=== PATIENT | female | born 1955 | race Caucasian/White ===

== ENCOUNTER 2018-02-06 09:50 | Outpatient (CLI) | payer BC | END 2018-02-06 09:51 | disposition home or self-care (01) | LOC: BICMAMMO 09:50 | PROVIDERS: ATTEND Nurse Practitioner | DX: Z12.31 Encounter for screening mammogram for malignant neoplasm of breast (principal) | CPT/HCPCS: 77063; 77067 ==

== ENCOUNTER 2019-01-25 19:52 | Inpatient (IN) | payer BC ==
[2019-01-25] MEDS ORDERED: Azithromycin 500 MG VIAL ONE (20:57)
[2019-01-25] MEDS ORDERED: Zolpidem Tartrate 5 MG TAB PO PRN (21:36)
[2019-01-25] MEDS ORDERED: Ondansetron PF 4 MG/2 ML Vial IVP PRN (21:36)
--- NOTE | 2019-01-25 21:50 | PDOC.EVN ---
Event Note - Event Note Event Note: H&P [id number]
--- NOTE | 2019-01-25 22:31 | HP ---
CHIEF COMPLAINT: Cough and shortness of breath. HISTORY OF PRESENT ILLNESS: This is a 63-year-old female who states that she has been having cough and shortness of breath for approximately a week now. The patient was started on Z-Edson states that she has had no real benefit. Has not actually worsened however, but her cough, shortness of breat, and fevers have still been present throughout. The patient apparently was seen at an outside ER where she had a test done for influenza A and B and strep, which were negative. The patient was transferred to [facility] for further management and care. The patient was seen and examined in the ER. States that apart from cough and shortness of breath, she has no other complaints. No other medical history. No other alleviating or aggravating factors. The patient states that her past medical history is only positive for hyperlipidemia. Otherwise, she has no other prior medical history. Surgeries pertinent are not present. The patient is seen and examined in the ER. at bedside. All questions answered. REVIEW OF SYSTEMS: All systems reviewed, pertinent positives in HPI, otherwise negative. ALLERGIES: NO KNOWN DRUG ALLERGIES. SOCIAL HISTORY: Nondrinker, nonsmoker. FAMILY HISTORY: None. HOME MEDICATIONS: See MAR. PAST SURGICAL HISTORY: Hysterectomy as well as . PHYSICAL EXAMINATION: VITAL SIGNS: Blood pressure is 118/88, heart rate of 100, pulse of 98, temperature of 99, O2 saturations 100% on room air, respiratory rate of 18. GENERAL: The patient lying in bed. No acute discomfort. Occasionally coughing. HEENT: Pupils are equal, round, and reactive to light and accommodation. Oral cavity moist and pink. Extraocular muscles intact. NECK: Supple, mobile, nontender. Thyroid appreciated. PULMONARY: Bilateral lower lobe inspiratory crackles noted, mild. No increase in respiratory rate. No increase in AP diameter. CARDIOVASCULAR: Regular rate and rhythm. S1, S2. No murmurs, rubs, or gallops appreciated. ABDOMEN: Positive bowel sounds. Soft, nontender, nondistended. EXTREMITIES: 2+ peripheral pulses noted. No cyanosis, clubbing, or edema. NEUROLOGICAL: Cranial nerves 2 through 12 intact. No loss of motor or sensory function. LABORATORY DATA: CBC reviewed. BMP reviewed. X-ray from outside facility reviewed. ASSESSMENT: 1. Bronchitis. 2. Hyperlipidemia. PLAN: 1. At this point in time, we will admit the patient to Internal Medicine Team in the outpatient unit. 2. We will start the patient on IV Levaquin as she has been tried on Z-Edson and this has not worked. 3. We will provide p.r.n. DuoNebs. 4. We will obtain repeat chest x-ray tomorrow morning as well as blood cultures. Depending on the patient's condition, if she is improving, she could probably be discharged home with Levaquin and Medrol Dosepak and inhaler. Plan discussed with the patient and at length. We will adjust plan and therapy and medical care based on the patient's condition and how she progresses and the results of the workup. Once again case and plan discussed with the patient and at length. They understand, agree with this plan. They wish for the patient to remain full code. Job ID: [id number]
[2019-01-26 00:15] VITALS: BMI 25.2
[2019-01-26 05:37] LABS: #Lymphocytes 0.5 thou/uL (1.20-3.40); #Monocytes 0.4 thou/uL (0.11-0.59); #Neutrophils 12.5 thou/uL (1.40-6.50); %Lymphocytes 3.7 % (21.0-51.0); %Monocytes 2.6 % (0.0-10.0); %Neutrophils 93.6 % (42.0-75.0); Hemoglobin 13.4 g/dL (12.0-16.0); Mean Corpuscular HGB CONC 34.3 g/dL (32.0-36.0); Mean Corpuscular Hemoglobin 33.4 pg (27.0-31.0); Mean Corpuscular Volume 97.4 fL (78.0-98.0); Mean Platelet Volume 7.3 fL (7.4-10.4); Platelet Count 225 thou/uL (130-400); RBC Distribution Width 11.7 % (11.5-14.5); Red Blood Cell (RBC) Count 3.99 mill/uL (4.20-5.40); White Blood Cell (WBC) Count 13.3 thou/uL (4.8-10.8)
[2019-01-26 05:59] LABS: Anion Gap 13 mmol/L (10-20); BUN (Urea Nitrogen) 10 mg/dL (9.8-20.1); Calc. Creatinine Clearance 82 mL/min (70-130); Carbon Dioxide 24 mmol/L (23-31); Chloride 102 mmol/L (98-107); Estimated GFR-MDRD 86; Glucose 143 mg/dL (80-115); Potassium 4.3 mmol/L (3.5-5.1); Sodium 135 mmol/L (136-145)
[2019-01-26] MEDS: Folic Acid 1 MG TAB PO SCH (08:51)
[2019-01-26] MEDS ORDERED: Enoxaparin Sodium 40 MG/0.4 ML SYRINGE SC SCH (09:00)
--- NOTE | 2019-01-26 15:45 | PDOC.PN ---
- Subjective Encounter Start Date: 01/26/19 Encounter Start Time: 09:00 Patient seen and examined for Pneumonia. Productive cough+. No new complaints. No overnight events - Objective Resuscitation Status - Order Detail: 01/25/19 21:36 Resuscitation Status Routine Resuscitation Status: FULL: Full Resuscitation Discussed with: patient and MAR Reviewed: Yes Vital Signs & Weight: Vital Signs (12 hours) Temp Pulse Resp BP Pulse Ox 01/26/19 12:00 97.8 F 91 20 142/73 H 96 01/26/19 07:35 97.4 F L 88 24 H 121/77 98 01/26/19 03:52 97.7 F 83 20 108/60 97 Weight Weight 137 lb 14.4 oz I&O: 01/25/19 01/26/19 01/27/19 06:59 06:59 06:59 Intake Total 600 Output Total 800 Balance -200 Result Diagrams: 01/28/19 07:09 01/28/19 07:09 Radiology Reviewed by me: No (CXR - RLL infiltrate) Phys Exam - Physical Examination Constitutional: NAD Respiratory: no wheezing, no rhonchi Right sided rales Cardiovascular: RRR, no rub Gastrointestinal: soft, non-tender, positive bowel sounds Musculoskeletal: no edema Neurological: moves all 4 limbs Dx/Plan - Plan DVT proph w/SCDs 1. Sepsis due to RLL pneumonia ?Pneumococcal 2. HLD 3. Hyponatremia 4. CKD 2 PLAN: Cont IV Levaquin WBC down to 13.3 from 18. Had fever 102 at other facility Flu negative Strep negative Add Mucinex CBC in AM Cont to monitor DC in 24 hr if stable Review of Systems - Review of Systems Cardiovascular: negative: chest pain, palpitations, orthopnea, paroxysmal nocturnal dyspnea, edema, light headedness, other Gastrointestinal: negative: Nausea, Vomiting, Abdominal Pain, Diarrhea, Constipation, Melena, Hematochezia, Other - Medications/Allergies Allergies/Adverse Reactions: Allergies Allergy/AdvReac Type Severity Reaction Status Date / Time No Known Allergies Allergy Verified 01/25/19 22:56 Medications: Current Medications Acetaminophen (Tylenol) 650 mg PO Q4H PRN PRN Reason: Headache/Fever/Mild Pain (1-3) Albuterol/Ipratropium (Duoneb) 3 ml NEB [id number] PRN PRN Reason: SOB &/or Wheezing Aspirin (Ecotrin) 81 mg PO HS [facility] Atorvastatin Calcium (Lipitor) 20 mg PO HS [facility] Cholecalciferol (Vitamin D3) 1,000 units PO HS [facility] Cyanocobalamin (Vitamin B-12) 500 mcg PO HS [facility] Folic Acid (Folvite) 0.5 mg PO DAILY [facility] Last Admin: 01/26/19 08:51 Dose: 0.5 mg Levofloxacin 500 mg/ Device 100 mls @ 100 mls/hr IVPB Q24HR [facility] Last Admin: 01/25/19 23:28 Dose: 100 mls Ondansetron HCl (Zofran) 4 mg IVP Q6H PRN PRN Reason: Nausea/Vomiting Sodium Chloride (Flush - Normal Saline) 10 ml IVF Q12HR PRN PRN Reason: Saline Flush Last Admin: 01/25/19 23:26 Dose: 10 ml Zolpidem Tartrate (Ambien) 5 mg PO HSPRN PRN PRN Reason: Insomnia
[2019-01-26] MEDS ORDERED: Non-Formulary Item 1 EACH (Cyanocobalamin (Vitamin B-12) [Vitamin B-12] 500 MCG) PO SCH (21:00)
[2019-01-26] MEDS ORDERED: Non-Formulary Item 1 EACH (Folic Acid [Folic Acid] 0.4 MG) PO SCH (21:00)
[2019-01-26] MEDS ORDERED: CHOLECALCIFEROL 800 UNIT PO SCH (21:00)
[2019-01-26] MEDS: Cyanocobalamin (Vitamin B-12) 1,000 MCG TAB PO SCH (21:03)
[2019-01-26] MEDS: Aspirin 81 mg Enteric Coated Tablet PO SCH (21:04)
[2019-01-26] MEDS: guaiFENesin ER 600 MG TAB PO SCH (21:04)
[2019-01-26] MEDS: Atorvastatin Calcium 20 MG TAB PO SCH (21:04)
[2019-01-27 06:06] LABS: Hemoglobin 12.9 g/dL (12.0-16.0); Mean Corpuscular HGB CONC 32.2 g/dL (32.0-36.0); Mean Corpuscular Hemoglobin 31.9 pg (27.0-31.0); Mean Corpuscular Volume 99.2 fL (78.0-98.0); Platelet Count 282 thou/uL (130-400); RBC Distribution Width 11.9 % (11.5-14.5); Red Blood Cell (RBC) Count 4.03 mill/uL (4.20-5.40); White Blood Cell (WBC) Count 18.3 thou/uL (4.8-10.8)
[2019-01-27 06:07] LABS: Band 27 % (5-11); Lymphocytes 10 % (21-51); MDiff Complete? YES; Monocytes 6 % (0-10); Neutrophil 57 % (42-75); Platelet Morphology Comment Appears Adequate
[2019-01-27] MEDS: Saccharomyces boulardii 250 MG CAP PO SCH (09:44)
[2019-01-27] MEDS: guaiFENesin ER 600 MG TAB PO SCH ×2 (09:44→20:43)
[2019-01-27] MEDS: Folic Acid 1 MG TAB PO SCH (09:44)
[2019-01-27] MEDS: Acetaminophen 325 MG TAB PO PRN (09:45)
[2019-01-27] MEDS: cefTRIAXone\\ROCEPHIN 2 GM in Sodium Chloride 0.9% 100 ML IVPB SCH (10:51)
--- NOTE | 2019-01-27 12:08 | RAD ---
CHEST 2 VIEWS: Date: 01/27/19 HISTORY: Pneumonia, worsening white blood cell count. FINDINGS: Alveolar confluent pneumonia in the right lower lobe. Heart size is normal. The left lung is clear. N o significant pleural effusion. IMPRESSION: Evidence for right lower lobe pneumonia. Atherosclerosis of aorta. POS: [facility]
[2019-01-27] MEDS ORDERED: diphenhydrAMINE 25 MG CAP PO PRN (13:55)
[2019-01-27] MEDS ORDERED: Loratadine 10 MG TAB PO PRN (13:55)
[2019-01-27] MEDS ORDERED: Senokot 8.6 MG TAB PO PRN (13:58)
[2019-01-27] MEDS ORDERED: Polyethylene Glycol 3350 17 GM Packet PO PRN (13:58)
--- NOTE | 2019-01-27 17:23 | PDOC.PN ---
- Subjective Encounter Start Date: 01/27/19 Encounter Start Time: 12:30 Patient seen and examined for Pneumonia. Feels the same. Cough productive of white phlegm. No new complaints. No overnight events - Objective Resuscitation Status - Order Detail: 01/25/19 21:36 Resuscitation Status Routine Resuscitation Status: FULL: Full Resuscitation Discussed with: patient and MAR Reviewed: Yes Vital Signs & Weight: Vital Signs (12 hours) Temp Pulse Resp BP Pulse Ox 01/27/19 15:52 98.2 F 83 16 143/79 H 96 01/27/19 11:21 98.2 F 80 16 145/77 H 98 01/27/19 07:44 97.9 F 82 16 140/80 98 Weight Admit Weight 137 lb 14.4 oz Weight 137 lb 14.4 oz I&O: 01/26/19 01/27/19 01/28/19 06:59 06:59 06:59 Intake Total 600 1840 480 Output Total 800 2300 Balance -200 -460 480 Result Diagrams: 01/28/19 07:09 01/28/19 07:09 Radiology Reviewed by me: Yes (CXR - Rt basilar pneumonia) Phys Exam - Physical Examination Constitutional: NAD Respiratory: no wheezing, no rhonchi Cardiovascular: RRR, no rub Rt basilar rales Gastrointestinal: soft, non-tender, positive bowel sounds Musculoskeletal: no edema Neurological: moves all 4 limbs Dx/Plan - Plan DVT proph w/SCDs 1. Sepsis due to RLL pneumonia ?Pneumococcal 2. HLD 3. Hyponatremia 4. CKD 2 PLAN: Add IV Ceftriaxone Cont IV Levaquin Change to inpt AM labs Consult ID due to worsening WBC with 27% bandemia Review of Systems - Review of Systems Respiratory: negative: Cough, Dry, Shortness of Breath, Hemoptysis, SOB with Excertion, Pleuritic Pain, Sputum, Wheezing Cardiovascular: negative: chest pain, palpitations, orthopnea, paroxysmal nocturnal dyspnea, edema, light headedness, other Gastrointestinal: negative: Nausea, Vomiting, Abdominal Pain, Diarrhea, Constipation, Melena, Hematochezia, Other - Medications/Allergies Allergies/Adverse Reactions: Allergies Allergy/AdvReac Type Severity Reaction Status Date / Time No Known Allergies Allergy Verified 01/25/19 22:56 Medications: Current Medications Acetaminophen (Tylenol) 650 mg PO Q4H PRN PRN Reason: Headache/Fever/Mild Pain (1-3) Last Admin: 01/27/19 09:45 Dose: 650 mg Albuterol/Ipratropium (Duoneb) 3 ml NEB [id number] PRN PRN Reason: SOB &/or Wheezing Aspirin (Ecotrin) 81 mg PO [facility] Last Admin: 01/26/19 21:04 Dose: 81 mg Atorvastatin Calcium (Lipitor) 20 mg PO [facility] Last Admin: 01/26/19 21:04 Dose: 20 mg Cholecalciferol (Vitamin D3) 1,000 units PO [facility] Last Admin: 01/26/19 21:03 Dose: 1,000 units Cyanocobalamin (Vitamin B-12) 500 mcg PO [facility] Last Admin: 01/26/19 21:03 Dose: 500 mcg Diphenhydramine HCl (Benadryl) 25 mg PO Q6H PRN PRN Reason: Itching & Insomnia Doxycycline Hyclate (Vibramycin) 100 mg PO BID [facility] Folic Acid (Folvite) 0.5 mg PO DAILY [facility] Last Admin: 01/27/19 09:44 Dose: 0.5 mg Guaifenesin (Mucinex) 600 mg PO Q12HR [facility] Last Admin: 01/27/19 09:44 Dose: 600 mg Ceftriaxone Sodium 2 gm/ (Sodium Chloride) 100 mls @ 200 mls/hr IVPB Q24HR [facility] Last Admin: 01/27/19 10:51 Dose: 100 mls Loratadine (Claritin) 10 mg PO DAILYPRN PRN PRN Reason: Sinus Symptoms Ondansetron HCl (Zofran) 4 mg IVP Q6H PRN PRN Reason: Nausea/Vomiting Polyethylene Glycol (Miralax) 17 gm PO DAILY PRN PRN Reason: Constipation Saccharomyces Boulardii (Florastor) 250 mg PO DAILY [facility] Last Admin: 01/27/19 09:44 Dose: 250 mg Senna (Senokot) 2 tab PO HSPRN PRN PRN Reason: Constipation Sodium Chloride (Flush - Normal Saline) 10 ml IVF Q12HR PRN PRN Reason: Saline Flush Last Admin: 01/26/19 21:06 Dose: 10 ml Zolpidem Tartrate (Ambien) 5 mg PO HSPRN PRN PRN Reason: Insomnia
--- NOTE | 2019-01-27 18:02 | CON ---
DATE OF CONSULTATION: 01/27/2019 REASON FOR CONSULTATION: Respiratory symptoms and fever. HISTORY OF PRESENT ILLNESS: A 63-year-old, who has history of fairly good health status in the past with very little problems, who presented with 2 weeks history of respiratory symptoms with cough and low-grade temperature elevation, which have not responded to outpatient azithromycin. She had an A and B influenza antigen test, which were negative and eventually transferred to [facility] with concern for community-acquired pneumonia. Since admission, she has felt improved and now she feels like she is close to baseline. No headaches, visual symptoms, sore throat, odynophagia, or dysphagia. No vomiting. No back pain. No abdominal pain or diarrhea. No genitourinary symptoms. PAST MEDICAL HISTORY: Hysterectomy and and previous cholecystectomy for management of acute cholecystitis. SOCIAL HISTORY: Never smoker. FAMILY HISTORY: Negative. CURRENT MEDICATIONS: 1. Tylenol. 2. DuoNeb. 3. Ecotrin. 4. Lipitor. 5. Ceftriaxone. 6. Vitamin B. 7. Benadryl. 8. Vibramycin. 9. MiraLAX. 10. Zolpidem. OBJECTIVE: VITAL SIGNS: Vital signs normal. BP 140/79, pulse 83, respirations 16, and O2 saturation 96%. SKIN: Shows no areas of skin breakdown. No petechia or purpura. No lymphadenopathy. HEENT: Ocular movements conjugate. Oral cavity normal. NECK: Supple. LUNGS: Symmetric clear breath sounds. HEART: S1 and S2. Regular rate. ABDOMEN: Soft, not distended or tender. No ascites. No bladder distention. EXTREMITIES: No edema. Pulses, 1+ in dorsalis pedis. Moves extremities equally. Cognitive function appears to be intact. LABORATORY DATA: White cell count is up from 13,000 to 18,000, hemoglobin 12, and platelets 282 with 27% bands. Sodium 135, creatinine 0.69, and glucose 143. Two sets of blood cultures thus far no growth. IMAGING STUDY: With a chest x-ray, which demonstrates confluent infiltrate right lower lobe, normal heart size. ASSESSMENT: 1. Respiratory symptoms for 2 weeks with intermittent low-grade temp elevation. 2. Failure of response to azithromycin given in the outpatient setting. 3. Abnormal chest x-ray. 4. Neutrophilia with bandemia. DISCUSSION: The differential diagnosis includes community-acquired pneumonia with the usual pathogens including the possibility of viral pneumonia. An atypical pneumonia due to mycobacterial pathogens and zoonotic infections such as Coxiella burnetii appears to be less likely. Vasculitis malignancy less likely. The patient does not have risk factors for resistant pathogens and I would continue with Rocephin, switch her to doxycycline from levofloxacin in view of the possible reaction with facial erythema. We will submit respiratory virus PCR panel and respiratory pathogen PCR panel. Job ID: [id number]
[2019-01-27] MEDS: Aspirin 81 mg Enteric Coated Tablet PO SCH (20:42)
[2019-01-27] MEDS: Atorvastatin Calcium 20 MG TAB PO SCH (20:42)
[2019-01-27] MEDS: Doxycycline 100 MG CAP PO SCH (20:43)
[2019-01-27] MEDS: Cyanocobalamin (Vitamin B-12) 1,000 MCG TAB PO SCH (20:44)
[2019-01-28 07:56] LABS: Hemoglobin 13.4 g/dL (12.0-16.0); Mean Corpuscular HGB CONC 32.8 g/dL (32.0-36.0); Mean Corpuscular Hemoglobin 32.4 pg (27.0-31.0); Mean Corpuscular Volume 98.7 fL (78.0-98.0); Mean Platelet Volume 6.8 fL (7.4-10.4); Platelet Count 318 thou/uL (130-400); RBC Distribution Width 11.7 % (11.5-14.5); Red Blood Cell (RBC) Count 4.14 mill/uL (4.20-5.40); White Blood Cell (WBC) Count 9.1 thou/uL (4.8-10.8)
[2019-01-28 07:59] LABS: Anion Gap 15 mmol/L (10-20); BUN (Urea Nitrogen) 12 mg/dL (9.8-20.1); Calc. Creatinine Clearance 78 mL/min (70-130); Calcium 9.5 mg/dL (7.8-10.44); Carbon Dioxide 26 mmol/L (23-31); Chloride 103 mmol/L (98-107); Estimated GFR-MDRD 81; Glucose 99 mg/dL (80-115); Potassium 4.5 mmol/L (3.5-5.1); Sodium 139 mmol/L (136-145)
[2019-01-28 08:27] VITALS: BP 135/80; TEMP 98.3
[2019-01-28 08:33] LABS: Band 6 % (5-11); Lymphocytes 18 % (21-51); MDiff Complete? YES; Monocytes 12 % (0-10); Neutrophil 63 % (42-75); RBC Morphology Normal; Reactive Lymphocytes 1 % (0-10)
[2019-01-28] MEDS: guaiFENesin ER 600 MG TAB PO SCH (08:40)
[2019-01-28] MEDS: Folic Acid 1 MG TAB PO SCH (08:40)
[2019-01-28] MEDS: Saccharomyces boulardii 250 MG CAP PO SCH (08:40)
[2019-01-28] MEDS: Doxycycline 100 MG CAP PO SCH (11:37)
[2019-01-28] MEDS: Acetaminophen 325 MG TAB PO PRN (11:37)
[2019-01-28] MEDS: cefTRIAXone\\ROCEPHIN 2 GM in Sodium Chloride 0.9% 100 ML IVPB SCH (11:37)
--- NOTE | 2019-01-29 09:35 | DIS ---
DATE OF ADMISSION: 01/25/2019 DATE OF DISCHARGE: 01/28/2019 DISCHARGE DISPOSITION: Home. FOLLOW-UP: Follow up with Cira Douglas, family nurse practitioner in 1 week. The patient was seen and examined on the day of discharge. Denies any new complaints. Overall, symptomatically feels much better. DISCHARGE MEDICATIONS: 1. Omnicef 300 mg twice a day for 1 week. 2. Doxycycline 100 mg b.i.d. for 1 week. 3. Florastor 250 mg daily. 4. Mucinex twice a day for 1 week. All other home medications were left unchanged. BRIEF HOSPITAL COURSE: The patient is a 63-year-old female, who presented to the emergency room with cough and shortness of breath of 2 weeks' duration. Workup was consistent with right lower lobe pneumonia. WBC count on admission was 18,000, that improved to 13,000 on the . Repeat WBC on 27 January was 18.3 with 27% bandemia. The patient was evaluated by Dr. Cross on this day. Repeat chest x-ray on showed right lower lobe pneumonia. Dr. Cross recommended ceftriaxone with doxycycline. WBC on the day of discharge was 9.1 without any bandemia. Symptomatically, she feels much better. Respiratory viral panel was positive for parainfluenza 3 and rhinovirus. Blood culture remained negative. Primary care physician advised to follow up on the final blood cultures. FINAL DIAGNOSES: 1. Sepsis secondary to right lower lobe pneumonia, suspected pneumococcal. 2. Acute rhinovirus and parainfluenza virus 3 infection. 3. Hyperlipidemia. 4. Chronic kidney disease stage 2. 5. Mild hyponatremia secondary to dehydration on admission. PLAN: Plan of care was discussed with the patient in detail. She stated understanding. Job ID: [id number]
== END 2019-01-28 16:20 | disposition home or self-care (01) | DRG 871 ==
LOC: ERS 19:52 → OBSVTOIN 22:44 → 2SW 22:44 → T4-B 01-27 22:39
PROVIDERS: ADMIT Internal Medicine; ATTEND Internal Medicine
DX: A41.9 Sepsis, unspecified organism (principal); J13 Pneumonia due to Streptococcus pneumoniae; J10.08 Influenza due to other identified influenza virus with other specified pneumonia; E87.1 Hypo-osmolality and hyponatremia; E78.00 Pure hypercholesterolemia, unspecified; E86.0 Dehydration; N18.2 Chronic kidney disease, stage 2 (mild); Z90.710 Acquired absence of both cervix and uterus; Z90.49 Acquired absence of other specified parts of digestive tract
CPT/HCPCS: 36415; 71046; 80048; 85007; 85025; 85027; 87040; 87633; 87798; 96365; J0456; J0696; J1956; J7050

== ENCOUNTER 2019-05-30 14:10 | Outpatient (CLI) | payer BC ==
--- NOTE | 2019-05-30 14:48 | MMO ---
Bilateral MAMMO Bilat Screen [facility]. CLINICAL HISTORY: Patient is 63 years old and is seen for screening. The patient has no family history of breast cancer. The patient has no personal history of cancer. VIEWS: The views performed were: bilateral craniocaudal with tomosynthesis and bilateral mediolateral oblique with tomosynthesis. FILMS COMPARED: The present examination has been compared to prior imaging studies performed at [facility] on 12/12/2011, 04/28/2013 and 08/09/2015, and at [facility] on 02/06/2018. MAMMOGRAM FINDINGS: There are scattered fibroglandular densities. There are benign appearing calcifications seen in both breasts. There are no suspicious masses, suspicious calcifications, or new areas of architectural distortion. IMPRESSION: THERE IS NO MAMMOGRAPHIC EVIDENCE OF MALIGNANCY. A ROUTINE FOLLOW-UP MAMMOGRAM IN 1 YEAR IS RECOMMENDED. THE RESULTS OF THIS EXAM WERE SENT TO THE PATIENT. ACR BI-RADS Category 2 - Benign finding MAMMOGRAPHY NOTE: 1. A negative mammogram report should not delay a biopsy if a dominant of clinically suspicious mass is present. 2. Approximately 10% to 15% of breast cancers are not detected by mammography. 3. Adenosis and dense breasts may obscure an underlying neoplasm. Reported by: RAZA ASIF MD Electonically Signed: [id number]
== END 2019-05-30 14:11 | disposition home or self-care (01) ==
LOC: BICMAMMO 14:10
PROVIDERS: ATTEND Nurse Practitioner
DX: Z12.31 Encounter for screening mammogram for malignant neoplasm of breast (principal)
CPT/HCPCS: 77063; 77067

== ENCOUNTER 2020-09-02 08:06 | Outpatient (CLI) | payer MEDICARE, OTHER ==
--- NOTE | 2020-09-02 08:35 | MMO ---
Bilateral MAMMO Bilat Screen [facility]. CLINICAL HISTORY: Patient is 65 years old and is seen for screening. The patient has no family history of breast cancer. The patient has no personal history of cancer. VIEWS: The views performed were: bilateral craniocaudal with tomosynthesis and bilateral mediolateral oblique with tomosynthesis. FILMS COMPARED: The present examination has been compared to prior imaging studies performed at [facility] on 04/28/2013 and 08/09/2015, and at [facility] on 02/06/2018 and 05/30/2019. This study has been interpreted with the assistance of computer-aided detection. MAMMOGRAM FINDINGS: The breasts are heterogeneously dense, which could obscure a lesion on mammography. There are stable benign appearing calcifications seen in both breasts. There are no suspicious masses, suspicious calcifications, or new areas of architectural distortion. IMPRESSION: THERE IS NO MAMMOGRAPHIC EVIDENCE OF MALIGNANCY. A ROUTINE FOLLOW-UP MAMMOGRAM IN 1 YEAR IS RECOMMENDED. THE RESULTS OF THIS EXAM WERE SENT TO THE PATIENT. ACR BI-RADS Category 2 - Benign finding MAMMOGRAPHY NOTE: 1. A negative mammogram report should not delay a biopsy if a dominant of clinically suspicious mass is present. 2. Approximately 10% to 15% of breast cancers are not detected by mammography. 3. Adenosis and dense breasts may obscure an underlying neoplasm. Reported by: LEE ANN BLACK MD Electonically Signed: [id number]
== END 2020-09-02 08:07 | disposition home or self-care (01) ==
LOC: BICMAMMO 08:06
PROVIDERS: ATTEND Nurse Practitioner
DX: Z12.31 Encounter for screening mammogram for malignant neoplasm of breast (principal)
CPT/HCPCS: 77063; 77067

== ENCOUNTER 2021-09-09 11:12 | Outpatient (CLI) | payer MEDICARE, OTHER | END 2021-09-09 11:13 | disposition home or self-care (01) | LOC: BICMAMMO 11:12 | PROVIDERS: ATTEND Clinical Nurse Specialist Medical-Surgical | DX: Z12.31 Encounter for screening mammogram for malignant neoplasm of breast (principal) | CPT/HCPCS: 77063; 77067 ==

== ENCOUNTER 2023-08-31 14:48 | Outpatient (CLI) | payer MEDICARE, OTHER | END 2023-08-31 14:49 | disposition home or self-care (01) | LOC: BICMAMMO 14:48 | PROVIDERS: ATTEND Family Medicine | DX: Z12.31 Encounter for screening mammogram for malignant neoplasm of breast (principal) | CPT/HCPCS: 77063; 77067 ==

== ENCOUNTER 2024-09-16 13:10 | Outpatient (CLI) | payer MEDICARE, OTHER | END 2024-09-16 13:11 | disposition home or self-care (01) | LOC: BICMAMMO 13:10 | PROVIDERS: ATTEND Family Medicine | DX: Z12.31 Encounter for screening mammogram for malignant neoplasm of breast (principal) | CPT/HCPCS: 77063; 77067 ==

== ENCOUNTER 2025-09-24 14:58 | Outpatient (CLI) | payer MEDICARE, OTHER | END 2025-09-24 14:59 | disposition home or self-care (01) | LOC: BICMAMMO 14:58 | PROVIDERS: ATTEND Family Medicine | DX: Z12.31 Encounter for screening mammogram for malignant neoplasm of breast (principal) | CPT/HCPCS: 77063; 77067 ==